=== PATIENT | female | born 1970 ===

== ENCOUNTER 2018-08-10 20:31 | Emergency (ER) | payer SELFPAY ==
[~2018-08-10] VITALS: Ht 180.3 cm; Wt 56.7 kg
[2018-08-10] MEDS ORDERED: LACTATED RINGERS 1,000 ML IV ONE ×2 (20:54→23:26)
[2018-08-10 21:02] LABS: BASOPHILS % (AUTO) 0 % (0-10); EOSINOPHILS # (AUTO) 0.1 10^3/uL (0.0-0.3); EOSINOPHILS % (AUTO) 2 % (0-10); HEMATOCRIT 44 % (35-52); HEMOGLOBIN 14.5 G/DL (11.5-16.0); LYMPHOCYTES # (AUTO) 1.9 X 10^3 (1.0-4.0); LYMPHOCYTES % (AUTO) 25 % (12-44); MEAN CORPUSCULAR HEMOGLOBIN 31 PG (25-34); MEAN CORPUSCULAR HGB CONC 33 G/DL (32-36); MEAN CORPUSCULAR VOLUME 94 FL (80-99); MEAN PLATELET VOLUME 10.3 FL (7.4-10.4); MONOCYTES # (AUTO) 0.5 X 10^3 (0.0-1.0); MONOCYTES % (AUTO) 7 % (0-12); NEUTROPHILS # (AUTO) 4.9 X 10^3 (1.8-7.8); NEUTROPHILS % (AUTO) 67 % (42-75); PLATELET COUNT 305 10^3/uL (130-400); RED CELL DISTRIBUTION WIDTH 14.9 % (10.0-14.5); WHITE BLOOD COUNT 7.4 10^3/uL (4.3-11.0)
[2018-08-10 21:06] LABS: INR 0.9 (0.8-1.4); PROTHROMBIN TIME PATIENT 12.2 SEC (12.2-14.7)
[2018-08-10 21:15] LABS: ALANINE AMINOTRANSFERASE 13 U/L (0-55); ALKALINE PHOSPHATASE 115 U/L (40-136); BILIRUBIN,TOTAL 0.6 MG/DL (0.1-1.0); BUN/CREATININE RATIO 11; CALCIUM 9.8 MG/DL (8.5-10.1); CARBON DIOXIDE 27 MMOL/L (21-32); CHLORIDE 104 MMOL/L (98-107); CREATININE SERUM 0.93 MG/DL (0.60-1.30); GFR ESTIMATED > 60; GLUCOSE 84 MG/DL (70-105); MAGNESIUM 2.3 MG/DL (1.8-2.4); POTASSIUM 3.7 MMOL/L (3.6-5.0); SALICYLATE < 5.0 MG/DL (5.0-20.0); SODIUM 142 MMOL/L (135-145); TOTAL PROTEIN 6.9 GM/DL (6.4-8.2)
[2018-08-10 21:18] LABS: BILIRUBIN,URINE NEGATIVE (NEGATIVE); CLARITY,URINE CLEAR; COLOR,URINE AMBER; GLUCOSE, URINE (UA) NEGATIVE (NEGATIVE); KETONES,URINE 2+ (NEGATIVE); LEUKOCYTE ESTERASE ,URINE 2+ (NEGATIVE); NITRITE,URINE POSITIVE (NEGATIVE); PH,URINE 6 (5-9); PROTEIN,URINE 2+ (NEGATIVE); UROBILINOGEN,URINE 1 MG/DL (NORMAL)
[2018-08-10 21:23] LABS: ACETAMINOPHEN < 10 UG/ML (10-30)
[2018-08-10 21:24] LABS: ABG BASE EXCESS 1.3 MMOL/L (-2.5-2.5); ABG OXYGEN SATURATION 96 % (94-100); ABG PCO2 45 MMHG (35-45); ABG PH 7.38 (7.37-7.43); ABG PO2 82 MMHG (79-93); ABG TCO2 27.4 MMOL/L (21.0-31.0)
[2018-08-10 21:25] LABS: AMORPHOUS SEDIMENT,UR FEW AMOR URATES /LPF; BACTERIA,URINE NEGATIVE /HPF
[2018-08-10 21:25] LABS: ALLENS TEST YES-POS
[2018-08-10 21:28] LABS: INSPIRED O2 ROOM AIR; PATIENT TEMP 98.4; VENTILATOR NO
[2018-08-10 21:33] LABS: AMPHETAMINE SCREEN, URINE POSITIVE (NEGATIVE); BARBITURATE SCREEN URINE NEGATIVE (NEGATIVE); BENZODIAZEPINES SCREEN URINE NEGATIVE (NEGATIVE); CANNABINOID SCREEN, URINE NEGATIVE (NEGATIVE); COCAINE SCREEN URINE NEGATIVE (NEGATIVE); METHADONE STAT NEGATIVE (NEGATIVE); METHAMPHETAMINE SCREEN URINE S NEGATIVE (NEGATIVE); OPIATE SCREEN URINE NEGATIVE (NEGATIVE); OXYCODONE STAT NEGATIVE (NEGATIVE); PROPOXYPHENE STAT NEGATIVE (NEGATIVE); TRICYCLIC ANTIDEPRESSANTS SCRE NEGATIVE (NEGATIVE)
[2018-08-10 21:37] LABS: TSH (THYROID ANALYZER) 0.18 UIU/ML (0.35-4.94)
[2018-08-10] MEDS ORDERED: cefTRIAXone FOR IV USE 1,000 MG in WATER (STERILE) FOR INJECTION 10 ML IV ONE (21:45)
--- NOTE | 2018-08-10 21:47 | NUR ---
PER DR DIAZ, WAITING TO HEAR BACK FROM [facility]
[2018-08-10] MEDS ORDERED: cefTRIAXone 1,000 MG IV (ROCEPHIN) VIAL ONE (22:04)
--- NOTE | 2018-08-10 22:14 | NUR ---
DI PEAK HERE TO TALK W/ PT
--- NOTE | 2018-08-10 22:43 | NUR ---
DI OUT OF ROOM TALKING W/ DR DIAZ
--- NOTE | 2018-08-10 22:51 | NUR ---
REPORT TO TAMARA WALKER
[2018-08-10 23:53] LABS: FREE T4 (FREE THYROXINE) 0.84 NG/DL (0.70-1.48)
--- NOTE | 2018-08-11 01:29 | ED Psychosocial ---
General Chief Complaint: Psych/Social Disorder Stated Complaint: SUICIDAL ATTEMPT Nursing Triage Note: PT TO ED 8 PER EMS FOR C/O SUICIDAL IDEATIONS ONSET THIS EVENING. PT REPORTS SHE "SHOT UP WITH ACETONE SOMETIME THIS EVENING TO GET ." PT WAS FOUND CURLED UP ON THE SIDEWALK IN FRONT OF [employer] CRYING. PT REPORTS SHE IS LIVING IN HER TRUCK AT THIS TIME. Source: patient (PT IS LIMITED HISTORIAN ABOUT CURRENT PROBLEM), EMS History of Present Illness Date Seen by Provider: Aug 10, 2018 Time Seen by Provider: 20:30 Initial Comments PT ARRIVES VIA EMS EMS WAS CALLED BECAUSE PT WAS FOUND CURLED UP IN A BALL ON THE PAVEMENT OUTSIDE OF THE MALL IN FRONT OF [employer] PT WAS NOT UNCONSCIOUS, WAS CRYING AND WAS EASILY AROUSED BY EMS PT STATES SHE "SHOT UP ACETONE" , WHEN ASKED WHY SHE DID THIS, SHE REPLIES "TO GET HIGH OR TO GET --MY ACTUAL GOAL WAS TO GET " PT CONTINUES TO ADMIT THAT SHE WANTS TO PT ADMITS TO IV DRUG USE, INCLUDING METHAMPHETAMINES. ALSO ADMITS TO THC AND RX DRUG USE PT ADMITS TO PRIOR HISTORY OF SUICIDE ATTEMPTS BUT CUTTING, BUT CLAIMS WAS " LONG TIME AGO" DENIES ANY PRIOR PSYCH ADMITS, OR SEEING ANYONE FOR MENTAL HEALTH RECENTLY, BUT DOES STATE THAT SHE HAS BEEN PRESCRIBED PSYCH MEDICATIONS IN THE PAST FOR "BIPOLAR MANIC --DEPRESSIVE, MULTIPLE PERSONALITY". ON ARRIVAL, PT DOES NOT KNOW DAY OF WEEK, MONTH OR YEAR--STATES IT IS 2010 SHE KNOWS SHE IS IN A HOSPITAL BUT DOES NOT KNOW NAME OF HOSPITAL KNOWS SHE IS IN [place], BUT DOES NOT KNOW HOW LONG SHE HAS BEEN HERE. PT STATES SHE IS LIVING IN HER TRUCK, BUT DOES NOT KNOW HOW LONG SHE HAS BEEN LIVING IN HER TRUCK WHEN ASKED WHERE [place], [place] [facility]" NO PCP ANYWHERE Allergies and Home Medications Allergies Coded Allergies: No Known Drug Allergies (Unverified , 08/10/18) Patient Home Medication List Home Medication List Reviewed: Yes Review of Systems Constitutional: malaise Respiratory: No cough, No short of breath Cardiovascular: No chest pain Gastrointestinal: No abdominal pain, No vomiting Control/STD Prophylaxis: Other (HYST/BSO) Psychiatric/Neurological: See HPI Past Mjcyaeu-Fgcnqz-Rtdtor Hx Patient Social History Alcohol Use: Regular Use (HEAVY USE, CLAIMS NONE X 1 MONTH, PER PT ON 08/10/18) Recreational Drug Use: Yes (THC, RX DRUGS, + IV METH USE) Drug of Choice: METHAMPHETAMINE, RX DRUGS, MARIJUANA(MAKES HER NAUSEAOUS) Smoking Status: Current Everyday Smoker (1 PPD) Type Used: Cigarettes Recent Foreign Travel: No Contact w/Someone Who Travel: No Recent Infectious Disease Expo: No Recent Hopitalizations: No Physical Abuse: No Sexual Abuse: No Mistreated: No Fear: No Past Medical History Surgeries: Yes (HYST/BSO) Hysterectomy, Oophorectomy Respiratory: No Cardiac: No 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 oz. 56.639367ua; BMI Method:Estimated General Appearance: no apparent distress, cachetic, other (FILTHY, EXTREMELY MALODOROUS, REEKS OF OLD URINE, ALSO HAS ODOR OF CAT URINE, VERY UNKEMPT, SOMEWHAT LETHARGIC/DROWSY, SOBBING/TEARFUL AT TIMES. SPEECH CLEAR) HEENT: PERRL/EOMI, other (UPPER DENTURES, NO LOWER TEETH. ORAL MUCOSA DRY, LIPS DRY AND CRACKED WITH DRIED RESIDUE AROUND MOUTH.) Neck: normal inspection Respiratory: normal breath sounds, no respiratory distress, no accessory muscle use Cardiovascular: regular rate, rhythm, no murmur Gastrointestinal: non tender, soft Extremities: normal range of motion, non-tender, normal inspection, no pedal edema, no calf tenderness, normal capillary refill Neurologic/Psychiatric: round boner II-XII nml as tested, no motor/sensory deficits, alert, other (MENTATION AND OREINTATION NOTED ABOVE. ) Appearance/Memory: disheveled, impaired insight, impaired recent memory, impaired remote memory Behavior/Eye Contact: cooperative, normal speech, other (WITHDRAWN, TEARFUL) Thoughts/Hallucinations: no apparent hallucination; No delusions, No flight of ideas, No grandiose, No incoherent, No obsessive, No paranoid, No persecution, No phobic, No judaism Skin: normal color, warm/dry, tattoos/piercings, other (TRACK HENRY IN AC SPACES ) Progress/Results/Core Measures Results/Orders Lab Results Laboratory Tests Test 08/10/18 20:40 08/10/18 21:12 08/10/18 21:14 Range/Units White Blood Count 7.4 4.3-11.0 10^3/uL Red Blood Count 4.67 4.35-5.85 10^6/uL Hemoglobin 14.5 11.5-16.0 G/DL Hematocrit 44 35-52 % Mean Corpuscular Volume 94 80-99 FL Mean Corpuscular Hemoglobin 31 25-34 PG Mean Corpuscular Hemoglobin Concent 33 32-36 G/DL Red Cell Distribution Width 14.9 H 10.0-14.5 % Platelet Count 305 130-400 10^3/uL Mean Platelet Volume 10.3 7.4-10.4 FL Neutrophils (%) (Auto) 67 42-75 % Lymphocytes (%) (Auto) 25 12-44 % Monocytes (%) (Auto) 7 0-12 % Eosinophils (%) (Auto) 2 0-10 % Basophils (%) (Auto) 0 0-10 % Neutrophils # (Auto) 4.9 1.8-7.8 X 10^3 Lymphocytes # (Auto) 1.9 1.0-4.0 X 10^3 Monocytes # (Auto) 0.5 0.0-1.0 X 10^3 Eosinophils # (Auto) 0.1 0.0-0.3 10^3/uL Basophils # (Auto) 0.0 0.0-0.1 10^3/uL Prothrombin Time 12.2 12.2-14.7 SEC INR Comment 0.9 0.8-1.4 Activated Partial Thromboplast Time 32 24-35 SEC Sodium Level 142 135-145 MMOL/L Potassium Level 3.7 3.6-5.0 MMOL/L Chloride Level 104 98-107 MMOL/L Carbon Dioxide Level 27 21-32 MMOL/L Anion Gap 11 5-14 MMOL/L Blood Urea Nitrogen 10 7-18 MG/DL Creatinine 0.93 0.60-1.30 MG/DL Estimat Glomerular Filtration Rate > 60 BUN/Creatinine Ratio 11 Glucose Level 84 70-105 MG/DL Calcium Level 9.8 8.5-10.1 MG/DL Corrected Calcium 9.8 8.5-10.1 MG/DL Magnesium Level 2.3 1.8-2.4 MG/DL Total Bilirubin 0.6 0.1-1.0 MG/DL Aspartate Amino Transf (AST/SGOT) 20 5-34 U/L Alanine Aminotransferase (ALT/SGPT) 13 0-55 U/L Alkaline Phosphatase 115 40-136 U/L Troponin I < 0.028 <0.028 NG/ML Total Protein 6.9 6.4-8.2 GM/DL Albumin 4.0 3.2-4.5 GM/DL Free Thyroxine 0.84 0.70-1.48 NG/DL TSH [place] Testing 0.18 L 0.35-4.94 UIU/ML Salicylates Level < 5.0 L 5.0-20.0 MG/DL Acetaminophen Level < 10 L 10-30 UG/ML Serum Alcohol < 10 <10 MG/DL Urine Color CELINE H Urine Clarity CLEAR Urine pH 6 5-9 Urine Specific [place] 1.025 H 1.016-1.022 Urine Protein 2+ H NEGATIVE Urine Glucose (UA) NEGATIVE NEGATIVE Urine Ketones 2+ H NEGATIVE Urine Nitrite POSITIVE H NEGATIVE Urine Bilirubin NEGATIVE NEGATIVE Urine Urobilinogen 1 NORMAL MG/DL Urine Leukocyte Esterase 2+ H NEGATIVE Urine RBC (Auto) NEGATIVE NEGATIVE Urine RBC NONE /HPF Urine WBC 2-5 /HPF Urine Squamous Epithelial Cells 2-5 /HPF Urine Crystals PRESENT H /LPF Urine Amorphous Sediment FEW EVELYN URATES H /LPF Urine Bacteria NEGATIVE /HPF Urine Casts NONE /LPF Urine Mucus LARGE H /LPF Urine Culture Indicated NO Urine Opiates Screen NEGATIVE NEGATIVE Urine Oxycodone Screen NEGATIVE NEGATIVE Urine Methadone Screen NEGATIVE NEGATIVE Urine Propoxyphene Screen NEGATIVE NEGATIVE Urine Barbiturates Screen NEGATIVE NEGATIVE Ur Tricyclic Antidepressants Screen NEGATIVE NEGATIVE Urine Phencyclidine Screen NEGATIVE NEGATIVE Urine Amphetamines Screen POSITIVE H NEGATIVE Urine Methamphetamines Screen NEGATIVE NEGATIVE Urine Benzodiazepines Screen NEGATIVE NEGATIVE Urine Cocaine Screen NEGATIVE NEGATIVE Urine Cannabinoids Screen NEGATIVE NEGATIVE Blood Gas Puncture Site LEFT RADIAL Blood Gas Patient Temperature 98.4 Arterial Blood pH 7.38 7.37-7.43 Arterial Blood Partial Pressure CO2 45 35-45 MMHG Arterial Blood Partial Pressure O2 82 79-93 MMHG Arterial Blood HCO3 26 23-27 MMOL/L Arterial Blood Total CO2 27.4 21.0-31.0 MMOL/L Arterial Blood Oxygen Saturation 96 94-100 % Arterial Blood Base Excess 1.3 -2.5-2.5 MMOL/L Juan Test YES-POS Blood Gas Ventilator Setting NO Blood Gas Inspired Oxygen ROOM AIR My Orders Orders - PRIYANK DIAZ DO Acetaminophen (08/10/18 20:54) Alcohol (08/10/18 20:54) Arterial Blood Gas (08/10/18 20:54) Cbc With Automated Diff (08/10/18 20:54) Comprehensive Metabolic Panel (08/10/18 20:54) Drug Screen Stat (Urine) (08/10/18 20:54) Magnesium (08/10/18 20:54) Protime With Inr (08/10/18 20:54) Partial Thromboplastin Time (08/10/18 20:54) Salicylate (08/10/18 20:54) Thyroid Analyzer (08/10/18 20:54) Troponin I (08/10/18 20:54) Ua Culture If Indicated (08/10/18 20:54) Saline Lock/Iv-Start (08/10/18 20:54) Lactated Ringers (Lr 1000 Ml Iv Solution (08/10/18 20:54) Ceftriaxone For Iv Use (Rocephin For I (08/10/18 21:45) Free T4 (Free Thyroxine) (08/10/18 20:40) Ceftriaxone For Iv Use (Rocephin For I (08/10/18 22:04) Arterial Blood Draw (08/10/18 21:14) Saline Lock/Iv-Start (08/10/18 23:26) Lactated Ringers (Lr 1000 Ml Iv Solution (08/10/18 23:26) General/Regular (08/11/18 Breakfast) Medications Given in ED Vital Signs/I&O Blood Pressure Mean: 110 Progress Progress Note : Progress Note PT SLEPT FOR ENTIRE ER STAY, EASILY AWAKENS NO DETERIORATION IN PT'S CONDITION PT REMAINS AGREEABLE TO PSYCH ADMIT, AND REMAINS COOPERATIVE. Initial ECG Impression Date: Aug 10, 2018 Initial ECG Impression Time: 20:37 Initial ECG Rate: 76 Initial ECG Rhythm: Normal Sinus Initial ECG Comparisson: No Previous ECG Available Departure Communication (Admissions) 2136--CALLED [facility] 2146--SPOKE WITH DI PRATT, WILL BE IN TO SEE PT 2212--DI PRATT HERE TO DO MENTAL HEALTH SCREEN 2234--DI PRATT AGREES THAT PT NEEDS INPATIENT PSYCH CARE, AND IS NOT SAFE FOR HER TO BE DISMISSED FOR OUTPATIENT FOLLOW UP AT THIS TIME. PT IS AGREEABLE TO INPATIENT PSYCH ADMIT. 2250-[facility]NO BEDS AVAILABLE 2251-CALLED [facility] --NO BEDS AVAILABLE 2252-CALLED [facility] [place]NO BEDS AVAILABLE 2253-CALLED [facility]--NO BEDS AVAILABLE 2254-CALLED [facility] [place]--WILL CALL BACK 2255-CALLED [facility]--WILL CALL BACK 2256--[facility] CALLED BACK--NO BEDS 2315--[facility] CALLED BACK--NO BEDS 2320--CALLED --NO BEDS AVAILABLE 2324--CALLED [facility], HAVE BED. WILL FAX PT'S INFORMATION 0150--[facility] CALLED BACK, HAVE NOW RECEIVED ALL OF PT'S INFORMATION. WILL CALL BACK. 0235--[facility] ON PHONE WITH PT. 0340--CALLED [facility] TO CHECK STATUS OF PT'S ACCEPTANCE. THEY WILL CALL BACK 0343--[facility] CALLED BACK. DR. DUMONT HAS ACCEPTED PT FOR ADMIT/TRANSFER. 0345--CALLED [facility] FOR SECURE TRANSPORT, HE IS UNAVAILABLE UNTIL LATE THIS AFTERNOON. [facility]LINE IS ALSO NOT AVAILABLE FOR TRANSPORT--HE IS OUT OF STATE. 0358--CONTACTING EMS FOR TRANSPORT. ADVISED TO CALL BACK AFTER 0800 THIS AM 0800--[facility] WILL BE ABLE TO TRANSPORT PT, SOON THEY GET BACK FROM CURRENT TRANSFER TO [place]. Impression Primary Impression: Suicidal ideation Additional Impressions: Suicidal intent Active intravenous drug use Methamphetamine use UTI (urinary tract infection) Disposition: 65 XFER TO PSYCH HOSP/UNIT Condition: Stable Transfer Transfer Facility: [facility] Method of Transfer: EMS Departure-Patient Inst. Referrals: NO,LOCAL PHYSICIAN (PCP/Family) Primary Care Physician PRIYANK DIAZ DO Aug 11, 2018 01:28
--- NOTE | 2018-08-11 03:00 | NUR ---
YASH DAVALOS RN TALKING WITH PATIENT. PT BECOMING UPSET. PCT IN ROOM.
--- NOTE | 2018-08-11 03:50 | NUR ---
[facility]ONE DAVALOS ACCEPTED PATIENT. DECLINED TO ACCEPT REPORT UNTIL PATIENT HAS TRANSPORT.
--- NOTE | 2018-08-11 09:10 | NUR ---
Received referral. pt was lying on floor quietly crying, pt shared some of her story and situation. I listened and provided support and encouragement, pt repositioned to bed and asked for prayer, had prayer with pt.
[2018-08-11 10:10] VITALS: BP 106/65
== END 2018-08-11 10:10 ==
LOC: ER 20:34
DX: R45.851 Suicidal ideations (principal); F15.10 Other stimulant abuse, uncomplicated; N39.0 Urinary tract infection, site not specified; F41.9 Anxiety disorder, unspecified; F31.9 Bipolar disorder, unspecified; F60.9 Personality disorder, unspecified; F12.10 Cannabis abuse, uncomplicated; F17.210 Nicotine dependence, cigarettes, uncomplicated; Z90.710 Acquired absence of both cervix and uterus; Z91.5 Personal history of self-harm
CPT/HCPCS: 36415; 36600; 80053; 80306; 80320; 80329; 81000; 82805; 83735; 84439; 84443; 84484; 85025; 85610; 85730